=== PATIENT | female | born 1950 | race Caucasian/White ===

== ENCOUNTER 2023-09-01 10:19 | Emergency (ER) | payer MEDICARE, OTHER, SELFPAY ==
--- NOTE | ~2023-09-01 | XR_ITS ---
XR foot RT min 3V, XR ankle RT min 3V 09/01/2023 11:01 Indication: Right foot pain Procedure: 4 views right foot and 4 views right ankle Comparison: No prior studies for comparison. Findings: There is a nondisplaced intra-articular fracture base of the fifth metatarsal. Osteopenia. No other fracture. There are surgical changes consistent with intraoperative fixation of distal tibia l fracture. There is a degenerative calcaneal enthesophyte. Impression: 1: Acute nondisplaced intra-articular fracture base of the fifth metatarsal. Reviewed, dictated and finalized at location A. Impression: 1: Acute nondisplaced intra-articular fracture base of the fifth metatarsal. Impression: 1: Acute nondisplaced intra-articular fracture base of the fifth metatarsal.
[2023-09-01] MEDS: oxyCODONE/ACETAMINOPHEN (*CRX) 5-325 MG TABLET 1 TABLET PO (11:54)
--- NOTE | 2023-09-01 12:14 | ED.GENADULT ---
HPI - General Adult General Chief complaint: Extremity Injury, Lower Stated complaint: right foot injury Time Seen by Provider: 09/01/23 11:13 History of Present Illness HPI narrative: Winnie Espino is a 73 y/o female who presents with reports of falling on to her right foot today at around 0930. SHe denies hitting her head denies LOC. Denies any other injuires. She complains of pain swelling to her right foot. Related Data Allergies Allergy/AdvReac Type Severity Reaction Status Date / Time Sulfa (Sulfonamide Allergy Unknown Hives Verified 09/01/23 10:35 Antibiotics) gabapentin Allergy Other Verified 09/01/23 10:36 Review of Systems Review of Systems: All systems reviewed & are unremarkable except as noted in HPI and below Exam Narrative: GENERAL: Well-appearing, well-nourished, and in no acute distress. HEAD: Normocephalic, atraumatic. EYES: PERRLA and EOMI. ENT: Nares clear, no rhinorrhea or epistaxis. Mucous membranes moist. Oropharynx without tonsillar hypertrophy exudate or other lesions. CHEST: Clear to auscultation. No respiratory distress. No wheezes rales or rhonchi HEART: Regular rate and rhythm. No murmur heard. Normal peripheral pulses. ABDOMEN: Soft, nontender, nondistended, normal active bowel sounds. EXTREMITIES: Normal range of motion. + ecchymosis to the right lateral foot and swelling + neurovascular intact SKIN: Warm, dry, no rash. NEURO: No focal deficits. Alert and oriented x3. PSYCH: Normal mood and affect. Course Vital Signs Vital signs: Vital Signs Oxygen Delivery Room Air 09/01/23 10:21 Temperature 36.8 C 09/01/23 12:40 Pulse Rate 60 09/01/23 12:40 Respiratory Rate 16 09/01/23 12:40 Blood Pressure 139/80 09/01/23 12:40 Pulse Oximetry 99 09/01/23 12:40 Oxygen Delivery Room Air 09/01/23 10:21 Medical Decision Making MDM Narrative Medical decision making narrative: Normal range of motion. + ecchymosis to the right lateral foot and swelling + neurovascular intact Xray is showing Acute nondisplaced intra-articular fracture base of the fifth metatarsal. Discussed this finding with my attending Dr. Ibarra / who agrees that dispo with Post op shoe and Ortho follow up Patient provided with pain medication here She state she has a cane that she will use. Provided with ortho follow Return precautions provided Medical Records Medical records reviewed: Yes I reviewed the external patient's medical records. Vital Signs Vital Signs: Vital Signs Oxygen Delivery Room Air 09/01/23 10:21 Temperature 36.8 C 09/01/23 12:40 Pulse Rate 60 09/01/23 12:40 Respiratory Rate 16 09/01/23 12:40 Blood Pressure 139/80 09/01/23 12:40 Pulse Oximetry 99 09/01/23 12:40 Oxygen Delivery Room Air 09/01/23 10:21 Vitals reviewed by me. Imaging Data My impression: Impressions Ankle X-Ray 09/01/23 11:02 Impression: 1: Acute nondisplaced intra-articular fracture base of the fifth metatarsal. Foot X-Ray 09/01/23 11:02 Impression: 1: Acute nondisplaced intra-articular fracture base of the fifth metatarsal. Discharge Plan Discharge Clinical Impression: Fracture of fifth metatarsal bone of right foot Qualifiers: Encounter type: initial encounter Fracture type: closed Fracture alignment: nondisplaced Qualified Code(s): S92.354A - Nondisplaced fracture of fifth metatarsal bone, right foot, initial encounter for closed fracture Patient Disposition: Home, Self-Care Condition: Stable Instructions: Antibiotic Form Additional Instructions: Continue to wear the post op shoe Continue to Ice 20 minutes at a time / Elevate for the next 48hours Continue to take Tylenol and Motrin for pain Follow up with Orthopedics as discussed IF you develop any worsening symptoms or concerns return to the ED. Follow-up/Referrals: Salina,Jemma Ny MD [Primary Care Provider] - Yrn Gill MD [Physic
[2023-09-01 12:40] VITALS: BP 139/80; PULSE 60; RESP 16; TEMP 36.8; O2SAT 99
== END 2023-09-01 12:40 | disposition home or self-care (01) ==
PROVIDERS: Emergency Provider Nurse Practitioner Family; PCP Internal Medicine
DX: S92.354A Nondisplaced fracture of fifth metatarsal bone, right foot, initial encounter for closed fracture (principal); W19.XXXA Unspecified fall, initial encounter
CPT/HCPCS: 73610; 73630; 99284; A9270

== ENCOUNTER 2023-10-01 11:39 | Outpatient (CLI) | payer MEDICARE, OTHER, SELFPAY ==
--- NOTE | ~2023-10-01 | XR_ITS ---
Right foot Technique: AP, oblique, and lateral views were obtained. Clinical History: Fifth metatarsal fracture COMPARISON: 09/01/2023 Findings: Fractured the base of fifth metatarsal again noted, with partial interval healing probably present. No new fracture or dislocation seen. Prior ORIF at the distal tibia noted.. Joint spaces are preserved without erosive or degenerative change. Soft tissues are unremarkable. Impression: Healing fracture the base the fifth metatarsal. Reviewed, dictated and finalized at location M. Impression: Healing fracture the base the fifth metatarsal.
== END 2023-10-01 11:40 | disposition home or self-care (01) ==
PROVIDERS: PCP Internal Medicine; Visit Provider Orthopaedic Surgery
DX: S92.354D Nondisplaced fracture of fifth metatarsal bone, right foot, subsequent encounter for fracture with routine healing (principal); X58.XXXD Exposure to other specified factors, subsequent encounter
CPT/HCPCS: 73630

== ENCOUNTER 2023-10-31 11:01 | Outpatient (CLI) | payer MEDICARE, OTHER, SELFPAY ==
--- NOTE | ~2023-10-31 | XR_ITS ---
EXAMINATION: XR foot RT min 3V DATE: 10/31/2023 11:17 INDICATION: Follow-up right fifth metacarpal tarsal fracture TECHNIQUE: Dorsoplantar, two oblique and lateral views of the right foot were obtained. COMPARISON: None. FINDINGS: Diffuse osteopenia. No interval change in mild proximal distraction of a comminuted intra-articular f racture at the lateral base of the right fifth metatarsal. The fracture remains ununited with no evid ent callus formation. There is decreased lucency along the an additional minimally displaced fracture at the dorsal lateral corner of the anterior process of the calcaneus suggesting interval healing. Lag screw fixation at the medial malleolus and extending anterior to posteriorly across the tibial pl afond and likely for fixation of old healed fractures with no residual deformity. 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 IMPRESSION: 1. Unchanged mild distraction with no discernible productive changes of healing at a mildly comminute d intra-articular fracture at the base of the right fifth proximal phalanx. 2. Likely healing minimally displaced small likely avulsion fracture at the dorsolateral corner of th e anterior process of the calcaneus. Reviewed, dictated and finalized at location A. IMPRESSION: 1. Unchanged mild distraction with no discernible productive changes of healing at a mildly comminuted intra-articular fracture at the base of the right fifth proximal phalanx. 2. Likely healing minimally displaced small likely avulsion fracture at the lima solateral corner of the anterior process of the calcaneus.
== END 2023-10-31 11:02 | disposition home or self-care (01) ==
LOC: ANHIMG 11:05
PROVIDERS: PCP Internal Medicine; Visit Provider Orthopaedic Surgery
DX: S92.351A Displaced fracture of fifth metatarsal bone, right foot, initial encounter for closed fracture (principal); X58.XXXA Exposure to other specified factors, initial encounter
CPT/HCPCS: 73630